=== PATIENT | male | born 2005 | race Caucasian/White ===

== ENCOUNTER 2025-03-02 09:18 | Emergency (ER) | payer OTHER ==
[~2025-03-02] VITALS: Ht 180.3 cm; Wt 96.8 kg
[2025-03-02 10:53] VITALS: BP 134/76; TEMP 97.6; O2SAT 100
[2025-03-02] MEDS: IBUPROFEN 600MG TAB PO ONE (11:28)
== END 2025-03-02 12:07 | disposition home or self-care (01) ==
LOC: M ED 09:18
DX: M79.671 Pain in right foot (principal); M79.672 Pain in left foot; Z88.0 Allergy status to penicillin